=== PATIENT | female | born 1985 | race Caucasian/White ===

== ENCOUNTER 2018-01-09 04:45 | Inpatient (IN) | payer BC, MEDICAID ==
[2018-01-06 11:24] LABS: AMORPHOUS SEDIMENT,URINE TRACE /HPF; APPEARANCE,URINE CLOUDY; BILIRUBIN,URINE NEGATIVE (NEGATIVE); COLOR,URINE YELLOW; GLUCOSE, URINE NEGATIVE (NEGATIVE); KETONES,URINE TRACE mg/dL (NEGATIVE); LEUKOCYTE ESTERASE,URINE NEGATIVE (NEGATIVE); NITRITE,URINE NEGATIVE (NEGATIVE); PROTEIN,URINE NEGATIVE (NEGATIVE); URINE SPECIFIC GRAVITY 1.013
[2018-01-06 11:53] LABS: URINE AMPHETAMINES SCREEN NEGATIVE; URINE BARBITURATES SCREEN NEGATIVE; URINE BENZODIAZEPINES SCREEN NEGATIVE; URINE COCAINE SCREEN NEGATIVE; URINE MARIJUANA (THC) SCREEN NEGATIVE; URINE METHADONE SCREEN NEGATIVE; URINE PHENCYCLIDINE SCREEN NEGATIVE
[2018-01-08 11:50] LABS: ABSOLUTE LYMPHOCYTES (AUTO) 1.9 10^3/uL (0.5-4.7); ABSOLUTE MONOCYTES (AUTO) 0.5 10^3/uL (0.1-1.4); ABSOLUTE NEUT (AUTO) 4.5 10^3/uL (1.7-8.2); BASOPHILS % (AUTO) 0.2 % (0-2); EOSINOPHILS % (AUTO) 0.3 % (0-6); HEMATOCRIT 30.8 % (36.0-47.0); HEMOGLOBIN 10.6 g/dL (12.0-15.5); LYMPHOCYTES % (AUTO) 26.9 % (13-45); MEAN CORPUSCULAR HEMOGLOBIN 29.7 pg (27.0-33.4); MEAN CORPUSCULAR HGB CONC 34.5 g/dL (32.0-36.0); MEAN CORPUSCULAR VOLUME 86 fl (80-97); MONOCYTES % (AUTO) 7.8 % (3-13); PLATELET COUNT 219 10^3/uL (150-450); RED BLOOD COUNT 3.58 10^6/uL (3.72-5.28); RED CELL DISTRIBUTION WIDTH 13.7 % (11.5-14.0); SEGMENTED NEUTROPHILS % (AUTO) 64.8 % (42-78); TOTAL CELLS COUNTED % (AUTO) 100 %; WHITE BLOOD COUNT 6.9 10^3/uL (4.0-10.5)
[2018-01-09] MEDS ORDERED: LACTATED RINGERS 1000 ML IV PRN (05:00)
[2018-01-09] MEDS ORDERED: LIDOCAINE 0.5% INJ-PF (5 MG/ML) 50 ML SDV SUBCUT PRN (05:00)
[2018-01-09] MEDS ORDERED: AZITHROMYCIN 500 MG in DEXTROSE 5%-WATER 250 ML IV PRN (05:00)
[2018-01-09] MEDS ORDERED: RINGERS SOLUTION,LACTATED 1,000 ML IV PRN ×2 (05:00→09:01)
[2018-01-09] MEDS ORDERED: AZITHROMYCIN INJ 500 MG VIAL IV ONE (05:33)
[2018-01-09] MEDS ORDERED: LIDOCAINE 2% INJ-PF (20 MG/ML) 10 ML AMPUL ONE (06:31)
[2018-01-09] MEDS ORDERED: OXYTOCIN 10 UNIT/ML VIAL ONE (06:31)
[2018-01-09] MEDS ORDERED: MIDAZOLAM 2 MG/2 ML INJ ONE (06:32)
[2018-01-09] MEDS ORDERED: ONDANSETRON HCL INJ/PF 4 MG/2 ML SDV ONE (06:32)
[2018-01-09] MEDS ORDERED: EPHEDRINE SULFATE INJ 50 MG/1 ML AMPULE ONE (06:32)
[2018-01-09] MEDS ORDERED: FENTANYL CITRATE INJ/PF 100 MCG/2 ML AMPUL ONE (06:32)
[2018-01-09] MEDS ORDERED: ACETAMINOPHEN 1,000 MG/100 ML RTUPB IV ONE ×2 (06:33→09:29)
[2018-01-09] MEDS ORDERED: PROPOFOL INJ 200 MG/20 ML VIAL IV ONE (06:33)
[2018-01-09] MEDS ORDERED: BUPIVACAINE HCL/DEX-WATER/PF 15 MG/2 ML AMPULE ONE (06:34)
[2018-01-09] MEDS ORDERED: OXYTOCIN/NORMAL SALINE 20 UNIT/1,000 ML RTUINJ ONE ×2 (06:48→09:26)
[2018-01-09] MEDS ORDERED: DIPHENHYDRAMINE HCL 50 MG/ML VIAL IV PRN (07:00)
[2018-01-09] MEDS ORDERED: MORPHINE SULFATE 10 MG/ML INJ IV PRN ×2 (07:00→09:01)
[2018-01-09] MEDS ORDERED: FENTANYL CITRATE INJ/PF 100 MCG/2 ML AMPUL IV PRN ×3 (07:00)
[2018-01-09] MEDS ORDERED: MEPERIDINE HCL/PF INJ 25 MG/1 ML DISP.SYRIN IV PRN (07:00)
[2018-01-09] MEDS ORDERED: PROMETHAZINE HCL INJ 25 MG/1 ML VIAL IV PRN ×4 (07:00→11:30)
[2018-01-09] MEDS ORDERED: OXYCODONE-ACETAMINOPHEN 5-325 MG TABLET PO PRN ×2 (09:01)
[2018-01-09] MEDS ORDERED: DIPH/PERTUSS(ACELL)/TETANUS VAC/PF 0.5 ML SYR (>=10YO) IM PRN ×2 (09:01→11:30)
[2018-01-09] MEDS ORDERED: OXYTOCIN/NORMAL SALINE 20 UNIT/1,000 ML RTUINJ IV PRN (09:01)
[2018-01-09] MEDS ORDERED: SIMETHICONE 80 MG TAB.CHEW PO PRN (09:01)
[2018-01-09] MEDS ORDERED: MEASLES,MUMPS&RUBELLA VACC/PF 0.5 ML VIAL SUBCUT PRN ×2 (09:01→11:30)
[2018-01-09] MEDS ORDERED: ACETAMINOPHEN 325 MG TABLET PO PRN (09:01)
[2018-01-09] MEDS ORDERED: ACETAMINOPHEN 1,000 MG/100 ML RTUPB IV PRN (09:01)
[2018-01-09] MEDS ORDERED: MEPERIDINE HCL/PF INJ 25 MG/1 ML DISP.SYRIN ONE (09:02)
[2018-01-09] MEDS ORDERED: KETOROLAC TROMETHAMINE INJ/PF 30 MG/1 ML SDV ONE (09:29)
[2018-01-09] MEDS ORDERED: [UNRECOGNIZED DRUG - REMARK] PO SCH (10:00)
--- NOTE | 2018-01-09 10:34 | PDOC DELIVERY SUMMARY ---
Delivery Summary - Maternal Hx : III Hx Para: II Hx # Term Pregnancies: 3 Hx # Pregnancies: 0 Hx Total # of Abortions (Sponateous & Elective): 0 AMEENA: 01/09/18 Gestational Age: 39.2 Risk Factors: Previous Ruptured Membranes: AROM Time of Rupture: 08:13 Fluids: Clear - Delivery Labor: Not In Labor Presentation: Vertex Heart Rate Monitoring: Done Pre-Operatively Support Person Present: Yes Location: OR : Scheduled Placenta: Within Normal Limits Delivery of Placenta Date: 01/09/18 Delivery of Placenta Time: 08:16 - Medications Type of Anesthesia:: Spinal - Assess and Care Baby 1 Female Delivery of Infant Date: 01/09/18 Delivery of Infant Time: 08:15 at 1 minute: 8 at 5 minutes: 8 Preprinted Number On Band: [id number] Infant Skin to Skin: No To Nursery At: 08:27 Mode of Transport: Bassinet Delivery Weight: 3,595 Infant Delivery Length: 19.5 in - Delivery Personnel Leaf Sticker: MAGDIEL MOTA RN: MARQUISE ALDRIDGE RN: FARIHA MICHAEL RN: LALITA PUTNAM MD: VLAD GAGNON
[2018-01-09] MEDS: DOCUSATE SODIUM 100 MG CAPSULE PO SCH ×2 (11:04→17:51)
[2018-01-09] MEDS: FERROUS SULFATE 325 MG TABLET PO SCH (11:04)
[2018-01-09] MEDS: PRENATAL VITAMIN W DHA CAPSULE PO SCH (11:04)
--- NOTE | 2018-01-09 13:11 | OPERATIVE REPORT E ---
Operative Report NAME: KAYLEE FRANCISCO : 1985 AGE: 32Y DATE OF SURGERY: 01/09/2018 ROOM: 227 PREOPERATIVE DIAGNOSES: 1. IUP at 39 weeks and 2 days. 2. Previous x2. 3. Undesired fertility. POSTOPERATIVE DIAGNOSES: 1. IUP at 39 weeks and 2 days. 2. Previous x2. 3. Undesired fertility. SURGEON: VLAD GAGNON M.D. ANESTHESIA: Dr. Stanley with a spinal. FINDINGS: Female infant in cephalic presentation with Apgars of 8 and 9, weight 7 pounds, 15 ounces. COMPLICATIONS: None. ESTIMATED BLOOD LOSS: 600 mL. PATHOLOGY: Bilateral fallopian tubes. PROCEDURE: A low transverse hysterotomy section with bilateral park[place] tubal ligation. PROCEDURE IN DETAIL: The patient was taken to the operating room and prepared and draped in the normal sterile fashion in the supine position with a leftward tilt. A transverse skin incision was made with a scalpel following the patient's previous scar and this was carried through to the underlying layer of fascia with the same scalpel. The fascia was excised in the midline and extended laterally with Mckinley's. There were dense adhesions that were noted and these were sharply with Mckinley's and Bovie as necessary. The peritoneal cavity was entered sharply in this manner. Due to the extensive adhesions of the anterior abdominal wall to the uterus, these were taken down sharply with both Bovie and Mckinley's until the bladder could be identified. The bladder was then dissected away sharply using Mckinley's and bluntly using surgeon finger fracture. The bladder blade was inserted. The hysterotomy was nicked with a scalpel and extended laterally with surgeon finger fracture. The was then delivered atraumatically. The nose and mouth were suctioned with a suction bulb and the cord was clamped and cut, and the was handed off to awaiting park interpretive ranger. The cord blood was collected. The placenta was removed manually. The uterus was exteriorized and cleared of clots and debris. The hysterotomy was closed with 0 Monocryl in a running, locked fashion and a second layer of the same suture was used in imbrication to ensure hemostasis. Attention was then turned to the fallopian tube where the right fallopian tube was grasped with a Radha and the mesosalpinx was divided. A large 3.5 cm segment of the fallopian tube was tied off with 2 pieces of 2-0 Chromic and this intermediate section was then ligated with Metzenbaum's and the pedicles were made hemostatic with the Bovie. This was repeated on the left fallopian tube without difficulty. The uterus was then returned to the abdomen. The peritoneal cavity was cleared of clots and debris. The pedicles were inspected and found to be hemostatic. The rectus muscle and peritoneum were reapproximated with a mattress stitch of 2-0 Chromic. The fascia was closed with 0 Vicryl. The subcutaneous layer was closed with plain catgut and the skin was closed with 4-0 Vicryl. The patient tolerated the procedure well. Sponge, lap, and needle counts were correct x2, and the patient was taken to recovery in stable condition. DICTATING PHYSICIAN: VLAD GAGNON M.D. [id number] PHY#: [id number] ID: [id number] JOB#: [id number] ACCT: [id number] cc:VLAD GAGNON M.D. >
[2018-01-09] MEDS: KETOROLAC TROMETHAMINE INJ/PF 30 MG/1 ML SDV IV SCH ×2 (13:58→21:43)
[2018-01-10] MEDS: KETOROLAC TROMETHAMINE INJ/PF 30 MG/1 ML SDV IV SCH (05:29)
[2018-01-10 06:46] LABS: MEAN CORPUSCULAR HEMOGLOBIN 29.9 pg (27.0-33.4); MEAN CORPUSCULAR HGB CONC 34.6 g/dL (32.0-36.0); MEAN CORPUSCULAR VOLUME 86 fl (80-97); PLATELET COUNT 182 10^3/uL (150-450); RED BLOOD COUNT 3.01 10^6/uL (3.72-5.28); RED CELL DISTRIBUTION WIDTH 13.8 % (11.5-14.0); WHITE BLOOD COUNT 7.7 10^3/uL (4.0-10.5)
--- NOTE | 2018-01-10 09:41 | PDOC PROGRESS REPORT ---
Subjective-OB Progress Note for:: 01/10/18 - Post Op Day #1, s/p Rpt w/ BTL. Doing well this morning, no complaints, , AB+, Rubella NI Physical Exam (OB) Vital Signs: Temp Pulse Resp BP Pulse Ox 97.7 F 56 L 16 110/74 100 01/10/18 07:38 01/10/18 07:38 01/10/18 07:38 01/10/18 07:38 01/10/18 07:38 Intake & Output 01/09/18 01/10/18 01/11/18 06:59 06:59 06:59 Intake Total 2618 Output Total 825 Balance 1793 Weight 84.82 kg - General General Appearance: Appears well, Alert In distress: None - Dressing Removed: No Incision: Dressing - Lochia Lochia Amount: Small 10-25 ml Lochia Color: Rubra/Red - Abdomen Description: Tender, Soft Hernia Present: No Fundal Description: Firm, Midline Fundal Height: u/u - u/2 - Respiratory Respiratory Status: No respiratory distress Chest Status: Nontender Breath sounds: Clear Chest Palpation: Normal - Cardiovascular Rhythm: Regular Heart Sounds: Normal auscultation - Abdominal Inspection: Normal Distension: No distension Tenderness: Nontender Abdominal Notes: +bowel sounds - Genitourinary Genitourinary Note: voiding - Extremities Upper extremity: Normal inspection Lower extremities: Normal inspection - Neurological Cognition: Normal Orientation: AAOx4 - Psychological Associated symptoms: Normal affect, Normal mood - Skin Skin Temperature: Warm Skin Moisture: Dry Objective-Diagnostic Laboratory: 01/10/18 06:29 01/10/18 06:29 WBC 7.7 RBC 3.01 L Hgb 9.0 L Hct 26.0 L MCV 86 MCH 29.9 MCHC 34.6 RDW 13.8 Plt Count 182 Assessment and Plan(PN) - Assessment and Plan (1) S/P repeat low transverse Is this a current diagnosis for this admission?: Yes (2) bilateral tubal ligation done with C/s Is this a current diagnosis for this admission?: Yes (3) Anemia, Is this a current diagnosis for this admission?: Yes - Time Spent with Patient Time with patient: Less than 15 minutes Medications reviewed and adjusted accordingly: Yes - Disposition Anticipated Discharge: Home Within: within 48 hours
[2018-01-10] MEDS: DOCUSATE SODIUM 100 MG CAPSULE PO SCH ×2 (09:48→17:30)
[2018-01-10] MEDS: PRENATAL VITAMIN W DHA CAPSULE PO SCH (09:48)
[2018-01-10] MEDS: FERROUS SULFATE 325 MG TABLET PO SCH (09:48)
[2018-01-10] MEDS: IBUPROFEN 800 MG TABLET PO SCH ×2 (11:10→17:30)
[2018-01-11] MEDS: IBUPROFEN 800 MG TABLET PO SCH ×3 (00:07→12:20)
[2018-01-11 08:10] VITALS: BP 124/68
[2018-01-11] MEDS: DOCUSATE SODIUM 100 MG CAPSULE PO SCH (09:31)
[2018-01-11] MEDS: PRENATAL VITAMIN W DHA CAPSULE PO SCH (09:31)
[2018-01-11] MEDS: FERROUS SULFATE 325 MG TABLET PO SCH (09:31)
--- NOTE | 2018-01-11 09:51 | PDOC DISCHARGE SUMMARY ---
Final Diagnosis Discharge Date: 01/11/18 - Final Diagnosis (1) S/P repeat low transverse Is this a current diagnosis for this admission?: Yes (2) bilateral tubal ligation done with C/s Is this a current diagnosis for this admission?: Yes Discharge Data - Discharge Medication Home Medications: Ferrous Sulfate [Iron] 325 mg PO DAILY 08/08/13 Vit No.112/Folate No6 [Prenate Chewable Tablet] 1 mg PO DAILY 08/08/13 Zolpidem Tartrate [Ambien] 10 mg PO QHS 12/22/17 Reason(s) for Admission: Ceasarean Section-Repeat Procedures: None Intrapartum Procedure(s): : Low Cervical, Transverse - Diagnosis Test Laboratory: Temp Pulse Resp BP Pulse Ox 98.4 F 78 16 124/68 98 01/11/18 08:10 01/11/18 08:10 01/11/18 08:10 01/11/18 08:10 01/11/18 08:10 01/06/18 01/08/18 01/10/18 10:30 11:42 06:29 RBC 3.58 L 3.01 L Hgb 10.6 L 9.0 L Hct 30.8 L 26.0 L Urine Opiates Screen NEGATIVE - Discharge information/Instructions Discharge Activity: Balance Activity w/Rest, No Driving, No Lifting Over 10 Pounds, No Lifting/Push/Pulling, No tub bath Discharge Diet: Regular Disposition: HOME, SELF-CARE Follow up with: [facility] in: 5, Days
== END 2018-01-11 12:56 | disposition home or self-care (01) | DRG 785 ==
LOC: 2S 04:45
PROVIDERS: ADMIT Obstetrics & Gynecology; ATTEND Obstetrics & Gynecology
PROC: 0UB70ZZ Excision of Bilateral Fallopian Tubes, Open Approach (ICD-10-PCS; 2018-01-09)
PROC: 4A1HXCZ Monitoring of Products of Conception, Cardiac Rate, External Approach (ICD-10-PCS; 2018-01-09)
PROC: 10D00Z1 Extraction of Products of Conception, Low, Open Approach (ICD-10-PCS; principal; 2018-01-09 07:45)
PROC: 3E0234Z Introduction of Serum, Toxoid and Vaccine into Muscle, Percutaneous Approach (ICD-10-PCS; 2018-01-11)
DX: O34.211 Maternal care for low transverse scar from previous cesarean delivery (principal); Z30.2 Encounter for sterilization; O99.214 Obesity complicating childbirth; E66.9 Obesity, unspecified; O99.334 Smoking (tobacco) complicating childbirth; F17.210 Nicotine dependence, cigarettes, uncomplicated; Z37.0 Single live birth; O99.02 Anemia complicating childbirth; D64.9 Anemia, unspecified; Z88.0 Allergy status to penicillin; Z23 Encounter for immunization
CPT/HCPCS: 1961; 36415; 59025; 80307; 81001; 85025; 85027; 86850; 86900; 86901; 88302; 90707; 94799; J0131; J0456; J1885; J2175; J2250; J2405; J2590; J2704; J3010; J3490; J7060; J7120

== ENCOUNTER → 2019-12-31 | Outpatient (CLI) | payer BC ==
[2019-12-31 12:55] VITALS: BP 121/66
--- NOTE | 2019-12-31 12:55 | ER [facility] ASSESSMENT REPORT ---
Intake - In the Last 14 days Have you traveled outside [place]?: No Have you been in close contact with someone CONFIRMED: No Worked in Healthcare?: No - Symptoms Subjective Fever([place] feverish): No Chills: No Muscule Aches: No Runny Nose: No Sore Throat: No Cough (New or worsening chronic cough): No Shortness of breath: Yes Nausea or Vomiting: No Headache: Yes Abdominal Pain: No Diarrhea(3 or more loose stools in last 24 hours): No - Do you have any of the following Chronic lung disease: Asthma or emphysema or COPD: No Cystic Fibrosis: No Diabetes: No High Blood Pressure: No Cardiovascular Disease: No Chronic Kidney Disease: No Chronic Liver Disease: No Chronic blood disorder like Sickle Cell Disease: No Weak immune system due to disease or medication: No Neurologic condition that limits movement: No Developmental delay - Moderate to Severe: No Recent (within past 2 weeks) or current : No Morbid Obesity (>100 pounds over ideal weight): No - Objective Temperature: 98.2 F Pulse Rate: 75 Respiratory Rate: 18 Blood Pressure: 121/66 O2 Sat by Pulse Oximetry: 91 Objective: Given above, testing performed: If Testing Performed: Test Specimen Type Sent to General - General Information source: Patient Notes: Patient presents to the [facility] for screening for the coronavirus. Patient reports shortness of breath with headache for the past 3 days. Patient is a smoker. - Related Data Allergies/Adverse Reactions: Penicillins Allergy (Severe, Verified 01/09/18 05:00) Swelling of Throat Past Medical History - General Information source: Patient - Social History Smoking Status: Current Every Day Smoker Family History: None - Medical History Medical History: Negative - Past Medical History Cardiac Medical History: Denies: Hx Hypertension, Hx Pulmonary Embolism, Hx Heart Murmur Pulmonary Medical History: Denies: Hx Asthma, Hx Sleep Apnea, Hx Tuberculosis Neurological Medical History: Denies: Hx Cerebrovascular Accident, Hx Seizures Endocrine Medical History: Denies: Hx Hyperthyroidism, Hx Hypothyroidism Renal/ Medical History: Denies: Hx Kidney Stones, Hx Ovarian Cysts, Hx Pelvic Inflammatory Disease Malignancy Medical History: Denies: Hx Breast Cancer, Hx Cervical Cancer, Hx Ovarian Cancer GI Medical History: Reports: Hx Gastroesophageal Reflux Disease - with . Denies: Hx Hiatal Hernia, Hx Ulcer Musculoskeletal Medical History: Denies Hx Fibromyalgia Skin Medical History: Reports Hx MRSA Psychiatric Medical History: Denies: Hx Bipolar Disorder, Hx Depression, Hx Post Traumatic Stress Disorder, Hx Schizophrenia Traumatic Medical History: Denies: Hx Fractures Infectious Medical History: Denies: Hx HIV Past Surgical History: Reports: Hx Section, Hx Genitourinary Surgery - 02/2011 Physical Exam - Notes Notes: The patient was evaluated during the global Covid 19 pandemic, and that diagnosis was suspected/considered upon their initial presentation. Their evaluation, treatment and testing was consistent with current guidelines for patients who present with complaints or symptoms that may be related to Covid 19. Full physical exam could not be performed due to covid 19 isolation protocols. Constitutional: Nontoxic appearance, no acute distress Eyes: Nonicteric, extraocular movements intact, sclera clear Cardiovascular: Heart rate and rhythm regular, no JVD Respiratory: Breath sounds clear bilaterally, nonlabored breathing, no use of accessory muscles, no tachypnea Gastrointestinal: Abdomen not distended Muculoskeletal: Moves all extremities well Skin: Normal color Neuro: Awake alert oriented, normal speech Psych: Normal mood and affect Diagnostic Results Laboratory Results: Patient presents with upper respiratory symptoms worrisome for possible Covid 19. Patient appears suitable for discharge as they are not of an advanced age, do not have any chronic medical conditions such as diabetes, CAD, immune deficiency, chronic lung disease or chronic kidney disease. Patient's is nontoxic in appearance. Patient advised of pulse ox of 91% on room air. Patient is a smoker. Patient advised that if she has worsening shortness of breath cough or any concerning symptoms at home that she should present to the emergency department for further evaluation. Good return precautions have been discussed with patient, patient verbalized understanding and is agreeable with discharge plan of care at this time. Patient Education/Counseling Counseling/Education: Patient was provided with discharge information including: As a person under investigation for Covid 19, the [place] department of Health and Human Services, division of public health advises you to adhere to the following guidance until your test results are reported to you. If your test result is positive, you will receive additional information from your provider and your local health department at that time. Remain at home until you are cleared by the health provider or public health authorities. Keep a log of visitors to your home, notify any visitors to your home of your isolation status. If you plan to move to a new address or leave the county, notify the local health department in your County. Call your doctor or seek care if you have an urgent medical need. Before seeking medical care, call ahead to get instructions from the provider before arriving at the medical office clinic or hospital. Notify them that you are being tested for the virus that causes Covid 19 so that arrangements can be made, as necessary, to prevent transmission to others in the healthcare setting. Next, notify the local health department in your county. If a medical emergency arises and you need to call 911, inform the first responders that you are being tested for the virus that causes Covid 19. Next, notify the local health department in your county. [facility] Discharge - Discharge Clinical Impression: Encounter for screening laboratory testing for COVID-19 virus Condition: Stable Disposition: Home; Selfcare
[2019-12-31 14:19] LABS: A TYPE INFLUENZA AG NEGATIVE (NEGATIVE); B INFLUENZA AG NEGATIVE (NEGATIVE)
== END ==
LOC: RDC 11:55
PROVIDERS: ATTEND Nurse Practitioner Family
DX: Z20.828 Contact with and (suspected) exposure to other viral communicable diseases (principal)
CPT/HCPCS: 87804; 99201; 99211; U0003; C9803; 87635

== ENCOUNTER → 2020-03-17 | Outpatient (CLI) | payer BC ==
[~2020-03-17] MED LIST: COVID-19 VACCINE (PFIZER)/PF 30 MCG/0.3 ML VIAL IM ONE; EPINEPHRINE INJ/PF 1 MG/1 ML AMPULE IM PRN
== END ==
LOC: EMPHEALTH 17:50
PROVIDERS: ATTEND Internal Medicine
DX: Z23 Encounter for immunization (principal)
CPT/HCPCS: 91300